=== PATIENT | female | born 1970 | race Caucasian/White ===

== ENCOUNTER → 2024-07-17 | Outpatient (REF) | LOC: M PLAIMG 12:59 | PROVIDERS: ATTEND Internal Medicine | DX: R52 Pain, unspecified (principal); M17.11 Unilateral primary osteoarthritis, right knee; M47.816 Spondylosis without myelopathy or radiculopathy, lumbar region ==

== ENCOUNTER → 2024-11-13 | Outpatient (REF) | LOC: M PLAIMG 11:05 | PROVIDERS: ATTEND Internal Medicine | DX: M25.562 Pain in left knee (principal) ==